=== PATIENT | male | born 1940 | race Caucasian/White ===

== ENCOUNTER 2017-07-07 06:31 | Emergency (ER) | payer MEDICARE, OTHER ==
[~2017-07-07] VITALS: Ht 177.8 cm; Wt 85.0 kg
[~2017-07-07 06:31] MED LIST: ACCUPRIL40 MG PO; ACTOS30 MG OR; ADVAIR DISK1 IN; ADVAIR DISK1 INH; ALBUTEROL0.083 % IN; ALBUTEROL0.5 % IN; AUGMENTIN500TAB PO; AVELOX400 MG PO; BYSTOLIC10 MG PO; CETIRIZ/PSE1 TAB PO; CIPROFLOXACN750 MG PO; CLARINEX5 MG PO; CLINDAMYCIN300 M1 PO; CLONIDINE0.1 MG PO; DEPO-MEDROL40 MG/ML IJ; EFFIENT; FLONASE0.05 %; FLOVENT HFA44 MCG IN; GLIPIZIDE5 MG PO; GLUCOPHAGE500 MG PO; HCTZ/TRIAMT1 TA1 PO; K-DUR/KLOR-CON10 MEQ PO; K-DUR/KLOR-CON20 MEQ PO; LEVITRA10 MG PO; LONITEN2.5 M1 PO; LOPID600 MG PO; LORTAB 1010 MG PO; MAXZIDE-2537.5 MG/TA PO; MEDDOSEPAK OR; MEDDOSEPAK PO; METFORMIN HCL500 M2 PO; METOPROL TAR50 MG PO; METOPROLOL TART50 MG PO; MINOXIDIL2.5 MG PO; NEBULIZE4 PO; PREDNISONE20 MG PO; PROAIR HFA IN; PROVENTIL INH17 GM IN; PROVENTIL0.083 % IN; PROVENTIL0.083 % NEB; SINGULAIR10 MG PO; TRICOR145 MG PO; VERAPAMIL240 MG PO; ZITHROMAX500 MG PO; ZPAK PO; ZYRTEC-D ALG PO
[2017-07-07 16:25] VITALS: BP 129/74
== END 2017-07-07 16:25 | disposition home or self-care (01) ==
LOC: ED 06:31
DX: Z59.1 Inadequate housing (principal); J44.9 Chronic obstructive pulmonary disease, unspecified; I10 Essential (primary) hypertension; E11.9 Type 2 diabetes mellitus without complications; Z99.81 Dependence on supplemental oxygen

== ENCOUNTER 2017-12-08 12:57 | Inpatient (IN) | payer MEDICARE, OTHER ==
[~2017-12-08] VITALS: Ht 182.9 cm; Wt 115.8 kg
--- NOTE | 2017-12-08 13:11 | NUR ---
PT ARRIVES TO ROOM 13 VIA EMS, SWELLING NOTED TO ABDOMEN AND GROIN.
[2017-12-08] MEDS ORDERED: LASIX 80 MG TAB80 M1 PO (13:33)
[2017-12-08] MEDS ORDERED: FINASTERIDE5 MG PO (13:34)
[2017-12-08 13:52] LABS: HEMATOCRIT 29.4 % (39.0-50.0); HEMOGLOBIN 8.1 g/dl (14.0-18.0); IMMATURE GRANULOCYTES 0.6 % (0.0-1.0); MEAN CELL VOLUME 69.8 fL CALC (80.0-100.0); MEAN CORPUSCULAR HGB 19.2 pG CALC (26.0-32.0); MEAN CORPUSCULAR HGB CONC 27.6 g/L CALC (32.0-36.0); NEUT# 7.56 thou/uL (1.82-7.42); RED BLOOD COUNT 4.21 mill/uL (4.70-6.10); RED CELL DISTRI WIDTH 21.3 % (11.5-15.5)
[2017-12-08 14:12] LABS: ALBUMIN 3.5 g/dL (3.2-5.0); ALKALINE PHOSPHATASE 143 u/l (38-126); ANION GAP 17 (6-22 (CALC)); BILIRUBIN, TOTAL 0.4 mg/dL (0.0-1.4); BUN 27 mg/dL (8-23); BUN/CREATININE RATIO 17 (12-20 (CALC)); CALCIUM 8.9 mg/dL (8.4-10.2); CARBON DIOXIDE 26 mmol/l (22-30); CHLORIDE 108 mmol/l (95-108); CREATININE 1.6 mg/dL (0.7-1.3); GFR 42 ML/MIN (>=60 (CALC)); GFR FOR AFR.AMER. 51 ML/MIN (>=60 (CALC)); GLUCOSE 74 mg/dL (82-115); POTASSIUM 3.5 mmol/l (3.5-5.1); SGOT/AST 31 u/l (19-48); SGPT/ALT 21 u/l (11-66); SODIUM 147 mmol/l (137-146); TOTAL PROTEIN 6.7 g/dL (6.3-8.2)
--- NOTE | 2017-12-08 14:15 | NUR ---
ASSISTED PT W/REPOSITIONING. PT PREFERS TO SIT UP TO ENHANCE RESPIRATIONS. SATS 97% 4L/M VIA NC.
[2017-12-08 14:25] LABS: MYOGLOBIN 122 ng/mL (0 - 121)
[2017-12-08 14:43] LABS: TSH, 3RD GENERATION 6.61 uIU/mL (0.47 - 4.68)
--- NOTE | 2017-12-08 15:29 | NUR ---
PO FLUIDS PROVIDED. PERFORMED RECTAL EXAM NEGATIVE RESULTS.
--- NOTE | 2017-12-08 15:44 | NUR ---
SBAR PRINTED TO FLOOR
--- NOTE | 2017-12-08 16:25 | NUR ---
REPORT PROVIDED TO HERMES WEISS. TELEMETRY IN PLACE ON PT. PT FEED SANDWICH FEEDS SELF. PO FLUIDS TAKEN WELL.
--- NOTE | 2017-12-08 16:31 | NUR ---
PT CAME FROM ER BY HERMES ESCOBAR VIA STRETCHER. VINICIO ZI IN ROOM TO ASSIST HIM TO THE SCALE THEN BACK IN BED.
--- NOTE | 2017-12-08 16:34 | NUR ---
PT TO MEDSURG VIA STRETCHER. IV ABT INFUSING. NO APPARENT DISTRESS, O2,TELE IN PLACE.
[2017-12-08 16:35] VITALS: BP 139/54
--- NOTE | 2017-12-08 17:15 | NUR ---
PT IS SITTING IN THE SIDE OF THE BED. ASSESSMENT DONE AND TELE IN PLACE. BREATHS SOUND ARE DIMINISHED. PT IS ON NASAL CANNULA 4L/MIN. #20 RAC APPEARS HEALTHLY. PT C/O OF HIP PAIN. PT LEGS ARE DRY AND 1+ EDEMA. WILL SEE ORDERS FOR PAIN MEDICATION. ORIENTED TO CALL LIGHT SYSTEM AND SAFETY PRECAUTIONS REINFORCED. PT VERBALIZED UNDERSTANDING. ORIENTED BY HERMES DE LA FUENTE.
[2017-12-08 18:33] LABS: URINE BILIRUBIN - DIPSTICK NEGATIVE (NEGATIVE); URINE BLOOD DIPSTICK NEGATIVE (NEGATIVE); URINE COLOR YELLOW; URINE GLUCOSE - DIPSTICK NEGATIVE (NEGATIVE); URINE KETONE NEGATIVE (NEGATIVE); URINE LEUK ESTERASE NEGATIVE (NEGATIVE); URINE NITRITE - DIPSTICK NEGATIVE (Negative); URINE PROTEIN - DIPSTICK 30 mg/dL (NEG-TRACE); URINE SPECIFIC GRAVITY >=1.030; URINE UROBILINOGEN - DIPSTICK 0.2 E.U./dL (0.2)
[2017-12-08 18:43] LABS: URINE CLARITY CLEAR; URINE RBC 0-2 RBC/hpf (0-5)
[2017-12-08 19:05] VITALS: BP 119/39
--- NOTE | 2017-12-08 19:20 | NUR ---
REPORT RECEIVED FROM HERMES GODFREY;PT OOB RESTING IN RECLINER RECEIVING A BREATHING TREATMENT;INTRODUCED SELF TO PT AND POC DISCUSSED;RESPIRATIONS EVEN AND UNLABORED ON 02 @ 3L VIA;FALL PRECAUTIONS IN PLACE AND PT ENCOURAGED TO CALL FOR ASSISTANCE IF NEEDED;CALL LIGHT IN REACH;WILL CONTINUE TO MONITOR
--- NOTE | 2017-12-08 20:00 | NUR ---
PT USES CALL LIGHT TO CALL FOR ASSISTANCE;UPON ENTERING THE ROOM PT COMPLAINS OF SOB;VS OBTAINED AND O2 SATS @ 95% ON 3L OF HUM OXYGEN,PURSED LIP BREATHING EDUCATED;ASSESSMENT COMPLETED;A&O X3;RESPIRATIONS EVEN AND UNLABORED,SHALLOW;DIMINISHED LUNG SOUNDS NOTED;ABDOMEM SOFT UPON PALPATION;+1 EDEMA NOTED TO BLE,PT ENCOURAGED TO ELEVATE LEGS THROUGHOUT THE NIGHT;SKIN INTACT,DRYNESS NOTED TO BLE;WEAK PEDAL PULSES;PT DENIES ANY PAIN,PAIN SCALE AND REPORTING EDUCATED;PO FLUIDS ENCOURAGED;SAFETY PRECAUTIONS REINFORCED;URINAL AT BEDSIDE;CALL LIGHT IN REACH;WILL CONTINUE TO MONITOR
--- NOTE | 2017-12-08 21:20 | NUR ---
PT COMPLAINS OF BACK/HIP PAIN RATING 8/10 ON THE PAIN SCALE AND REQUEST PAIN MEDICATION;PT REPORTS THAT THE PRN LORTAB DID NOT WORK FOR HIM;PRN ULTRAM 50MG PO ADMINISTERED AT THIS TIME;WILL MONITOR FOR EFFECTIVENESS
[2017-12-09] VITALS (13 sets, daily range): BP systolic 126–155; BP diastolic 60–79
--- NOTE | 2017-12-09 | NUR ---
PT OOB IN RECLINER WITH LEGS ELEVATED;RESPIRATIONS EVEN AND UNLABORED ON HUM 02 @ 3L VIA NC;PT REQUEST PRN BREATHING TREATMENT,RT TO BE NOTIFIED;PT DENIES ANY OTHER NEEDS AT THIS TIME;FALL PRECAUTIONS IN PLACE;WILL CONTINUE TO MONITOR
--- NOTE | 2017-12-09 05:10 | NUR ---
PT OOB RESTING IN RECLINER;VS AND WT OBTAINED;SKIN TEAR NOTED TO BE SCRATCHED OPENED TO LEFT ELBOW;NEW GOWN PROVIDED AND BANDAID APPLIED;TELE MONITOR IN PLACE;RESPIRATIONS EVEN AND UNLABORED,SHALLOW ON HUM O2 @ 3L;MANJINDER WILLY PROVIDED PER REQUEST;FALL PRECAUTIONS IN PLACE;WILL CONTINUE TO MONITOR
--- NOTE | 2017-12-09 05:20 | NUR ---
PT COMPLAINS OF BACK/HIP PAIN RATING 6/10 ON THE PAIN SCALE AND REQUEST PAIN MEDICATION;PT MEDICATED WITH PRN ULTRAM 50MG PO;WILL MONITOR FOR EFFECTIVENESS
--- NOTE | 2017-12-09 07:00 | NUR ---
BEDSIDE REPORT RECEIVED BY HERMES ASH. PT IS SITTING IN RECLINER RESTING. ORIENT BY HERMES DE LA FUENTE.
--- NOTE | 2017-12-09 08:00 | NUR ---
PT IS SITTING IN RECLINER. ASSESSMENT DONE AND VS CHARTED. RESP EVEN AND UNLABORED, SHALLOW, DIMINISHED LUNGS SOUNDS. # 20 RAC THAT APPEARS HELATHLY. PT STATED THAT HE DOES NOT HAVE PAIN AT THIS TIME. FEET BILATERAL EDEMA 1+. ORIENTED TO CALL LIGHT SYSTEM, SAFETY PRECAUTIONS REINFORCED AND POC DISCUSSED. PT VERBALIZED UNDERSTANDING.
--- NOTE | 2017-12-09 08:49 | NUR ---
PT WENT VIA WHEELCHAIR WITH O2 AT 3L/MIN FOR HIS X-RAY.
--- NOTE | 2017-12-09 12:06 | NUR ---
PT IS SITTING IN RECLINER AND NO S/S OF DISTRESS NOTED. BLOOD TRANSFUSION BEGIN AND EXLPLAIN SIGN OF REACTION. PT VERBALIZED UNDERSTANDING.
--- NOTE | 2017-12-09 12:50 | NUR ---
PT IS SITTING IN RECLINER WITH NO S/S OF DISTRESS NOTED. PT IS VISITING WITH FAMILY.
--- NOTE | 2017-12-09 14:25 | NUR ---
PT TO MRI VIA WHEELCHAIR WITH O2 AT 3L/MIN.
--- NOTE | 2017-12-09 15:38 | NUR ---
PT IS SITTING IN RECLINER EATING HIS SANDWICH. SECOND UNIT OF BLOOD TRANSFUSION BEGIN. SIGN OF REACTION EXPLAIN AND PT VERBALIZED UNDERSTANDING.
--- NOTE | 2017-12-09 17:30 | NUR ---
MEDICATED PT FOR PAIN SEE EMAR. PT IS SITTING IN RECLINER GETTING READY TO EAT HIS DINNER. NO S/S OF DISTRESS NOTED. PT DENIES ANY OTHER NEEDS AT THIS TIME.
--- NOTE | 2017-12-09 19:10 | NUR ---
REPORT RECEIVED FROM EPIFANIORN;PT OOB RESTING IN RECLINER;INTRODUCED SELF TO PT AND POC DISCUSSED;RESPIRATIONS EVEN AND UNLABORED ON HUM O2 @ 3L VIA NC;PT ENCOURAGED TO CALL FOR ASSISTANCE IF NEEDED;CALL LIGHT IN REACH;WILL CONTINUE TO MONITOR
--- NOTE | 2017-12-09 19:50 | NUR ---
PT RESTING IN RECLINER WATCHING TV;ASSESSMENT COMPLETED;RESPIRATIONS EVEN AND UNLABORED,SHALLOW ON HUM 02 @ 3L VIA NC,COARSE LUNG SOUNDS NOTED;ABDOMEN SOFT;+1 EDEMA TO BLE,PT ENCOURAGED TO ELEVATE LEGS;GENERALIZED DRYNESS NOTED TO BLE;TELE MONITOR IN PLACE;#20G TO RAC FLUSHED AND PATENT,SCANT AMOUNT OF BLOOD TINGED DRAINAGE NOTED TO DRESSING;40 MG IV LASIX ADMINISTED AT THIS TIME;URINAL AT BEDSIDE;SKIN TEAR NOTED TO LEFT FOREARM,BANDAID IN PLACE;PT DENIES ANY PAIN TO BACK/HIP,PAIN SCALE AND REPORTING EDUCATED;SAFETY PRECAUTIONS REINFORCED AND PO FLUIDS ENCOURAGED;CALL LIGHT IN REACH;WILL CONTINUE TO MONITOR
[2017-12-10] VITALS (7 sets, daily range): BP systolic 135–161; BP diastolic 68–83
--- NOTE | 2017-12-10 00:25 | NUR ---
PT OOB SLEEPING IN RECLINER;RESPIRATIONS EVEN AND UNLABORED ON HUM O2 @ 3L;TELE MONITOR IN PLACE;NO S/S OF DISTRESS NOTED;CALL LIGHT IN REACH;WILL CONTINUE TO MONITOR
--- NOTE | 2017-12-10 02:30 | NUR ---
PT COMPLAINS OF BACK/HIP PAIN RATING 7/10 ON THE PAIN SCALE AND REQUEST PAIN MEDICATION;PT MEDICATED WITH PRN ULTRAM 50MG PO;#20G TO RAC REMOVED PER PT REQUEST WITH CATHETER INTACT;NEW #22G STARTED TO RIGHT FOREARM;WILL CONTINUE TO MONITOR
--- NOTE | 2017-12-10 04:55 | NUR ---
PT OOB RESTING IN RECLINER WITH LAB AT BEDSIDE;RESPIRATIONS EVEN AND UNLABORED ON O2 @ 3L VIA NC;TELE MONITOR IN PLACE;PT DENIES ANY PAIN OR NEEDS AT THIS TIME;COFFEE PROVIDED PER REQUEST;FALL PRECAUTIONS IN PLACE WITH CALL LIGHT IN REACH;WILL CONTINUE TO MONITOR
[2017-12-10 05:43] LABS: HEMATOCRIT 38.2 % (39.0-50.0); HEMOGLOBIN 10.5 g/dl (14.0-18.0); IMMATURE GRANULOCYTES 3.5 % (0.0-1.0); MEAN CELL VOLUME 73.6 fL CALC (80.0-100.0); MEAN CORPUSCULAR HGB 20.2 pG CALC (26.0-32.0); MEAN CORPUSCULAR HGB CONC 27.5 g/L CALC (32.0-36.0); NEUT# 6.74 thou/uL (1.82-7.42); RED BLOOD COUNT 5.19 mill/uL (4.70-6.10); RED CELL DISTRI WIDTH 21.5 % (11.5-15.5)
[2017-12-10 05:56] LABS: BILIRUBIN, TOTAL 0.4 mg/dL (0.0-1.4); CREATININE 1.6 mg/dL (0.7-1.3); POTASSIUM 4.7 mmol/l (3.5-5.1); TOTAL PROTEIN 7.2 g/dL (6.3-8.2)
--- NOTE | 2017-12-10 07:06 | NUR ---
INTRODUCED SELF TO PT AND COMPLETED MY ASSESSMENT AT THIS TIME. PTS VITALS ARE WNL. RESPIRATIONS ARE EVEN AND UNLABORED W/ COARSENESS BILATERALLY WITH DIMINISHED BASES AND EXPIRATORY WHEEZES. THE PT IS ON 3L O2 NC AT 96% SITTING UP IN THE CHAIR PER HIS PREFERENCE. PT HAS BILATERAL LE +1 PITTING EDEMA W/ SCALY DRY SKIN AND WEAK BUT PRESENT PEDAL PULSES. PT COMPLAINS OF NO PAIN AT THIS TIME W/ NO OTHER NEEDS. CALL LIGHT AND BEDSIDE TABLE WITHIN REACH W/ INSTRUCTIONS TO CALL FOR ASSISTANCE. WILL CONTINUE TO MONITOR.
--- NOTE | 2017-12-10 07:19 | NUR ---
REPORT RECEIVED FROM LUIS ALBERTO GEORGE. PT SITTING IN CHAIR AT BEDSIDE. DENIES PAIN. REPORTING OF COCNERNS ENCOURAGED. PLAN OF CARE DISCUSSED. CALL LIGHT REVIEWED AND IN REACH. PT STATES UNDERSTANDING.
--- NOTE | 2017-12-10 11:10 | NUR ---
TRANSPORTED PT TO MRI VIA WC W/ 3L NC ON PORTABLE O2. WHEN WE GOT TO THE MRI TRAILER THE PT STATED THAT HE WOULD TRY THIS ONE MORE TIME BUT AFTER THIS HE DIDN'T WANT TO DO IT AGAIN IF HE CAN'T TOLERATE IT THIS TIME. ASSISTED AL THE GLASS WASHER AND CARRIER TO GET THE PT ONTO THE MRI TABLE AND RE-ENFORCED TO THE PT THE IMPORTANCE OF THIS EXAM. WHEN PT LAY SUPINE PHYSICALLY UNABLE TO TOLERATE EXAM. PT BROUGHT BACK TO ROOM. NOTIFIED BY JEFFERY MIRZA. WILL CONTINUE TO MONITOR.
--- NOTE | 2017-12-10 12:39 | NUR ---
DR. SIU NOTIFIED OF PT UNABLE TO COMPLETE MRI R/T SOB WHILE SUPINE.
--- NOTE | 2017-12-10 15:27 | NUR ---
PT SITTING IN CHAIR. DROWSY R/T PREVIOUS DOSE OF ATIVAN PRN MRI STUDY. BED ALARM ATTACHED TO GOWN FOR SAFETY. PT INCONTINENT OF URINE X 2 IN CHAIR.
--- NOTE | 2017-12-10 19:10 | NUR ---
REPORT RECEIVED FROM TYRONERN;PT SITTING UPRIGHT IN BED,DROWSY;POC DISCUSSED AND PT VERBALIZES UNDERSTANDING;FALL PRECAUTIONS IN PLACE;DENIES ANY PAIN OR SOB,HUM OXYGEN ON RUNNING @ 3L;CALL LIGHT REVIEWED AND IN REACH;PT STATES UNDERSTANDING
--- NOTE | 2017-12-10 21:50 | NUR ---
PT RESTING AT BEDSIDE;A&O X3;ASSESSMENT COMPLETED;;RESPIRATIONS EVEN AND UNLABORED ON O2 @ 3L VIA NC,DIMINISHED LUNG SOUNDS NOTED;ABDOMEN DISTENDED;EDEMA NOTED TO BLL AND SCROTUM;ENCOURAGED PT TO ELEVATE LEGS AND SCROTUM ELEVATED ON A BATH BLANKET;DISCUSSED INSERTING A SOLIS CATHETER TO PT FOR ACCURATE I&O'S PER ORDER,PT VERBALIZES UNDERSTANDING;WEAK PEDAL PULSES NOTED;SCALING TO BLL AND SKIN TEAR TO LEFT FOREARM;#22G TO LEFT FOREARM FLUSHED AND PATENT,SITE APPEARS HEALTHY AND FREE FROM EDEMA;PO FLUIDS ENCOURAGED;DENIES PAIN TO HIP/BACK AT THIS TIME,PAIN REPORTING ENCOURAGED;FALL PRECAUTIONS IN PLACE;WILL CONTINUE TO MONITOR
--- NOTE | 2017-12-10 22:00 | NUR ---
MULTIPLE ATTEMPTS MADE TO INSERT A 16F SOLIS CATHETER,UNABLE TO OBTAIN AT THIS TIME DUE TO INCREASED EDEMA TO SCROTUM;WILL ATTEMPT AT A LATER TIME;PT TOELRATED WELL;CALL LIGHT IN REACH;WILL CONTINUE TO MONITOR
--- NOTE | 2017-12-10 23:30 | NUR ---
RT AT BEDSIDE TO ADMINISTER BREATHING TREATMENT PER PT REQUEST
--- NOTE | 2017-12-10 23:30 | NUR ---
PT REQUESTS TO BE RE-POSITIONED TO RECLINER;ENCOURAGED PT TO REMAIN IN BED TO ELEVATE EXTREMITIES,PT REFUSES;PT POSITIONED INTO RECLINER;LEGS AND SCROTUM ELEVATED IN ATTEMPTS TO DECREASE EDEMA;TELE MONITOR IN PLACE;RESPIRATIONS EVEN AND UNLABORED ON 3L VIA NC;DENIES ANY PAIN;CALL LIGHT IN REACH;WILL CONTINUE TO MONITOR
--- NOTE | 2017-12-11 02:30 | NUR ---
PT REPORTS THAT HE VOIDED ALL OVER RECLINER;PAOLA CARE PROVIDED;PT RE-POSITIONED INTO BED;16F SOLIS INSERTED WITH EASE,PT TOLERATED WELL;200CC OF CLOUDY/YELLOW URINE OBTAINED;PT SITTING UPRIGHT IN BED;RESPIRATIONS EVEN AND UNLABORED;DENIES ANY PAIN;WILL CONTINUE TO MONITOR
[2017-12-11 03:20] VITALS: BP 157/74
--- NOTE | 2017-12-11 04:20 | NUR ---
PT RESTING ON BEDSIDE;SOLIS CATHETER PATENT,HANGING TO GRAVITY,DRAINING CLOUDY/YELLOW URINE;PT DENIES ANY PAIN;REPSIRATIONS EVEN AND UNLABORED,SHALLOW ON OXYGEN @ 3L VIA NC;PT REQUEST BREATHING TREATMENT AT THIS TIME,RT TO BE NOTIFIED OF REQUEST;TELE MONITOR IN PLACE;PT VOICES NO OTHER NEEDS;FALL PRECAUTIONS IN PLACE;CALL LIGHT WITHIN REACH;WILL CONTINUE TO MONITOR
--- NOTE | 2017-12-11 05:00 | NUR ---
RT AT BEDSIDE TO ADMINISTER BREATHING TREATMENT
[2017-12-11 06:09] LABS: ALBUMIN 3.8 g/dL (3.2-5.0); BILIRUBIN, TOTAL 0.3 mg/dL (0.0-1.4); CALCIUM 8.9 mg/dL (8.4-10.2); CREATININE 1.4 mg/dL (0.7-1.3); HEMATOCRIT 33.4 % (39.0-50.0); HEMOGLOBIN 9.2 g/dl (14.0-18.0); IMMATURE GRANULOCYTES 1.8 % (0.0-1.0); MEAN CELL VOLUME 73.2 fL CALC (80.0-100.0); MEAN CORPUSCULAR HGB 20.2 pG CALC (26.0-32.0); MEAN CORPUSCULAR HGB CONC 27.5 g/L CALC (32.0-36.0); NEUT# 9.54 thou/uL (1.82-7.42); POTASSIUM 4.4 mmol/l (3.5-5.1); RED BLOOD COUNT 4.56 mill/uL (4.70-6.10); RED CELL DISTRI WIDTH 21.7 % (11.5-15.5); TOTAL PROTEIN 6.7 g/dL (6.3-8.2)
--- NOTE | 2017-12-11 07:19 | NUR ---
REPORT RECEIVED FROM LUIS ALBERTO GEORGE. PT SITTING ON SIDE OF BED. DENIES PAIN, REPORTING OF CONCERNS ENCOURAGED. PLAN OF CARE DISCUSSED. FALL PRECAUTIONS REINFORCED. CALL LIGHT REVIEWED AND IN REACH. PT STATES UNDERSTANDING.
[2017-12-11 07:35] VITALS: BP 162/80
--- NOTE | 2017-12-11 09:00 | NUR ---
DR. SIU IN TO SEE PT. PLAN OF CARE UPDATED. NPO FOR US REVIEWED.
[2017-12-11 11:13] VITALS: BP 146/65
--- NOTE | 2017-12-11 12:06 | NUR ---
PT SITTING IN CHAIR AT BEDSIDE. INQUIRING OF ESTIMATE TIME FOR US TESTING. NOTIFIED BY [facility] IT WILL BE ABOUT 1300. PT NOTIFIED AND STATES UNDERSTANDING.
--- NOTE | 2017-12-11 13:30 | NUR ---
PT LEFT FLOOR VIA WHEELCHAIR ACCOMPANIED BY VOLUNTEER TO US DEPARTMENT.
--- NOTE | 2017-12-11 14:10 | NUR ---
PT RETURNED TO FLOOR VIA WHEELCHAIR. REPORTS TOLERATING US WITHOUT INCIDENT. PT NOW IN CHAIR AT BEDSIDE. SPOUSE AND SON PRESENT.
[2017-12-11 15:56] VITALS: BP 161/72
--- NOTE | 2017-12-11 18:33 | NUR ---
PT SITTING IN CHAIR AT BEDSIDE. EATING DINNER, DENIES COMPLAINTS.
[2017-12-11 19:00] VITALS: BP 151/72
--- NOTE | 2017-12-11 19:30 | NUR ---
BEDSIDE REPORT RECEIVED FROM HERMES HANSEN. PT SITTING UP IN RECLINER. ALERT AND ORIENTED. C/O MODERATE HIP AND BACK PAIN. RESPIRATIONS EVEN AND UNLABORED ON OXYGEN. SOLIS IN PLACE. PLAN OF CARE DISCUSSED. PT ENCOURAGED TO VERBALZIE CONCERNS. STATES UNDERSTANDING AND REQUESTS A TRAMADOL FOR PAIN. SAFETY MEASURES IN PLACE. CALL LIGHT WITHIN REACH.
--- NOTE | 2017-12-11 22:45 | NUR ---
TRAMADOL EFFECTIVE FOR PAIN. SOLIS DRAINING CLEAR, YELLOW URINE IN ADEQUATE AMOUNTS. VS ARE STABLE. HAD NO FURTHER REQUESTS AT THIS TIME. ENCOURAGED TO NOTIFY NURSE OF ANY NEEDS. SAFETY MEASURES IN PLACE. CALL LIGHT WITHIN REACH.
[2017-12-12] VITALS (8 sets, daily range): BP systolic 129–175; BP diastolic 68–90
--- NOTE | 2017-12-12 01:02 | NUR ---
PT REQUESTED BREATHING TREATMENT FOR SOB; GIVEN WITH GOOD EFFECT. RESPIRATIONS EVEN AND UNLABORED. OXYGEN SATURATIONS REMAIN ABOVE 90%.
--- NOTE | 2017-12-12 05:17 | NUR ---
PT REMAINS SITTING UP IN RECLINER. C/O MODERATE PAIN TO HIPS AND BACK; MEDICATIONED 3 TIMES DURING THE SHIFT WITH TRAMADOL AND TYLENOL WITH SOMEWHAT GOOD EFFECT. RESPIRATIONS SEEM LABORED AT TIMES. PT REQUESTED HIS INHALER FOR SOB. OXYGEN SATURATIONS REMAINS ABOVE 90% ON 3L OF OXYGEN. INDWELLING SOLIS CATHETER CONTINUES TO DRAIN CLEAR YELLOW URINE IN ADEQUATE AMOUNTS. SPUTUM SAMPLE COLLECTED; A SMALL AMOUNT CLEAR AND THICK. SAFETY MEASURES IN PLACE. CALL LIGHT WITHIN REACH.
--- NOTE | 2017-12-12 07:19 | NUR ---
REPORT RECEIVED FROM HERMES PEPPER. PT SITTING IN CHAIR AT BEDSIDE. DENIES PAIN. PLAN OF CARE DISCUSSED. FALL PRECAUTIONS REINFORCED. CALL LIGHT REVIEWED AND IN REACH. PT STATES UNDERSTANDING.
--- NOTE | 2017-12-12 07:30 | NUR ---
Report rec'd from Edwina Bloom RN. Pt assessment completed. Pt awake, sitting up in recliner. No complaints of pain at this time, assisted with repositioning in chair for comfort. No SOB exhibited, resp even/unlabored RR 18, O2 sat 92% with NC 3L. Lung sounds diminished bilaterally. HR sinus tach @ 103 BPM apically. Abdomen distended & firm, bowel sounds active, pt confirms flatus <24 hrs, >72 hrs since last BM. Edema noted in bilateral forerarms w/ dryness, bilateral thighs, lower abdomen and scrotum. Dryness and scaling bilaterally in lower legs below the knee. Polo catheter patent, hanging to gravity, draining clear/yellow urine. All safety measures in place, call light and personal items within reach, reminded pt to call for assist.
--- NOTE | 2017-12-12 08:30 | NUR ---
Polo catheter D/C'd per Dr. López orders and removed with supervision by Lydia Sultana RN. Withdrew 10cc of clear saline from balloon, catheter removed without resistance, tip intact, pt tolerated well. Measured 300cc of clear/yellow urine in urinary drainage bag. Pt provided w/ urinal and will continue to monitor for first void. Pt sitting up in recliner, all safety measures in place, call light and personal items within reach.
--- NOTE | 2017-12-12 08:49 | NUR ---
SOLIS CATHETER REMOVED BY STUDENT NURSE WITH WRITERS SUPERVISION. DR. SIU AT BEDSIDE DISCUSSING PLAN OF CARE. PT STATES UNDERSTANDING.
[2017-12-12 09:42] LABS: HEMOGLOBIN 9.2 g/dl (14.0-18.0); IMMATURE GRANULOCYTES 0.8 % (0.0-1.0); MEAN CELL VOLUME 72.4 fL CALC (80.0-100.0); MEAN CORPUSCULAR HGB 20.2 pG CALC (26.0-32.0); MEAN CORPUSCULAR HGB CONC 27.9 g/L CALC (32.0-36.0); RED BLOOD COUNT 4.56 mill/uL (4.70-6.10); RED CELL DISTRI WIDTH 21.9 % (11.5-15.5)
--- NOTE | 2017-12-12 10:00 | NUR ---
Pt. voided 225cc clear/yellow urine post palmer catheter removal, denies pain/discomfort upon urination. Pt sitting up in recliner, all safety measures in place, call light and personal items within reach.
--- NOTE | 2017-12-12 12:21 | NUR ---
PT SITTING IN CHAIR AT BEDSIDE. PLAN OF CARE UPDATED PER DR. SIU R/T NEW XRAY RESULTS. PT STATES UNDERSTANDING. STATES "WELL ILL BE WAITING TO SEE DR. SIU THIS AFTERNOON."
--- NOTE | 2017-12-12 13:46 | NUR ---
AT 1300 PT WAS FOUND ON THE FLOOR BY DYER ASSISTANT. ATTEMPTED TO GET PT UP WITH 3 PEOPLE, HAD TO USE THE LOUISE LIFT TO ASSIST PT ON STANDING UP, IV SITE IS IN WITH NO REDNESS OR EDEMA. CALLED DR. DURBIN OFFICE TO INFORM HIM. LEFT WORD WITH DEISY SAHU. PT SUSTAINED SKIN TEARS ON RFA , R HAND, AND R KNEE, COVERED WITH OPSITE. PT STATED" I WAS GOING TO THE BATHROOM AND I CALLED BUT NO ONE CAME," STAFF WAS GETTING REPORT AND NO CALL WAS PLACED. CONTINUE TO OSBERVE AND MONITOR,
--- NOTE | 2017-12-12 16:30 | NUR ---
PT IS SITTING IN THE CHAIR., NO DISTRESS NOTED. IV SITE IS FREE FROM REDNESS OR EDEMA. CONTINUE TO OSBERVE AND MONOITOR.
--- NOTE | 2017-12-12 19:30 | NUR ---
BEDSIDE REPORT RECEIVED FROM LUIS ALBERTO FLOYD. PT SITTING UP IN RECLINER ALERT AND ORIENTED. C/O BACK AND HIP PAIN; TRAMADOL GIVEN. RESPIRATIONS EVEN AND UNABORED ON OXYGEN. DRESSINGS TO RUE HAVE SEROSANGUINOUS DRAINAGE TO 75% OF DRESSING. PLAN OF CARE DISCUSSED. PT ENCOURAGED TO VERBALIZE CONCERNS. STATES UNDERSTANDING. SAFETY MEASURES IN PLACE INCLUDING BED ALARM. CALL LIGHT WITHIN REACH.
--- NOTE | 2017-12-12 22:18 | NUR ---
DRESSINGS CHANGED TO RIGHT ARM, RIGHT KNEE AND LEFT ELBOW. SKIN TEAR TO LEFT FOREARM APPROXIMATED AND STERI STIPS APPLIED WITH TELFA AND KERLEX. PICTURES TAKEN AND IN CHART. PT ALSO REQUESTED BREATHING TREATMENT FOR SHORTNESS OF BREATH. AT TIME OF COMPLAINT PT'S RESPIRATIONS EVEN AND UNLABORED AND OXYGEN SATURATION 94%. RESPIRATORY AT BEDSIDE NOW.
--- NOTE | 2017-12-13 00:17 | NUR ---
PT ASLEEP IN RECLINER AT THIS TIME WITH NO SIGNS OF DISTRESS NOTED. RESPIRATIONS EVEN AND UNLABORED ON OXGYEN. SAFETY MEASURES IN PLACE. CALL LIGHT WITHIN REACH.
--- NOTE | 2017-12-13 04:07 | NUR ---
PT SLEPT THROUGHOUT THE NIGHT. BREATHING TREATMENT AT HS WAS EFFECTIVE FOR C/O SOB. DENIES PAIN AT THIS TIME. RESPIRATIONS EVEN AND UNLABORED ON ROOM AIR. USING URINAL AT BEDSIDE TO VOID. SAFETY MEASURES IN PLACE INCLUDING BED ALARM. CALL LIGHT WITHIN REACH.
[2017-12-13 04:54] VITALS: BP 168/81
[2017-12-13 06:38] LABS: HEMATOCRIT 34.7 % (39.0-50.0); HEMOGLOBIN 9.6 g/dl (14.0-18.0); IMMATURE GRANULOCYTES 0.8 % (0.0-1.0); MEAN CELL VOLUME 73.4 fL CALC (80.0-100.0); MEAN CORPUSCULAR HGB 20.3 pG CALC (26.0-32.0); MEAN CORPUSCULAR HGB CONC 27.7 g/L CALC (32.0-36.0); NEUT# 10.79 thou/uL (1.82-7.42); RED BLOOD COUNT 4.73 mill/uL (4.70-6.10); RED CELL DISTRI WIDTH 22.4 % (11.5-15.5)
[2017-12-13 06:47] LABS: ALBUMIN 3.8 g/dL (3.2-5.0); ALKALINE PHOSPHATASE 140 u/l (38-126); ANION GAP 15 (6-22 (CALC)); BILIRUBIN, TOTAL 0.6 mg/dL (0.0-1.4); BUN 36 mg/dL (8-23); BUN/CREATININE RATIO 35 (12-20 (CALC)); CALCIUM 8.8 mg/dL (8.4-10.2); CARBON DIOXIDE 33 mmol/l (22-30); CHLORIDE 100 mmol/l (95-108); GFR > 60 ML/MIN (>=60 (CALC)); GFR FOR AFR.AMER. > 60 ML/MIN (>=60 (CALC)); GLUCOSE 144 mg/dL (82-115); POTASSIUM 3.6 mmol/l (3.5-5.1); SGOT/AST 49 u/l (19-48); SGPT/ALT 34 u/l (11-66); SODIUM 145 mmol/l (137-146); TOTAL PROTEIN 6.7 g/dL (6.3-8.2)
[2017-12-13 08:25] VITALS: BP 163/78
--- NOTE | 2017-12-13 08:25 | NUR ---
ASSESSMETN IS COMPLETED: PT IS SITTING IN THE CHAIR, NO DISTRESS NOTED. IV SITE IS FREE FROM REDNESS OR EDEMA. TELE MONITOR IN PLACE. BREATH SOUNDS ARE CLEAR,BILATERALLY, HR IS REG,PULSES ARE STRONG
[2017-12-13 12:15] VITALS: BP 158/78
--- NOTE | 2017-12-13 12:20 | NUR ---
PT IS VISITING WITH FAMILY NO DISTRESS NOTEDD. IV SITE IS FREE FROM REDNESS OR EDEMA. CONTINUE TO OSBERVE AND MONIOTR.
[2017-12-13 16:30] VITALS: BP 138/66
--- NOTE | 2017-12-13 16:30 | NUR ---
PT IS SITTING IN THE CHAIR, NO DISTRESS NOTED. IV SITE IS FREE FROM REDNESS OR EDEMA.
[2017-12-13 19:00] VITALS: BP 183/73
--- NOTE | 2017-12-13 19:42 | NUR ---
BEDSIDE REPORT RECEIVED FROM LUIS ALBERTO FLOYD. PT UP TO BSC AT THIS TIME FOR AN EXTRA LARGE BM. SPECIMEN COLLECTED. PT C/O MILD BACK AND HIP PAIN AND REQUESTS TYLENOL. RESPIRATIONS EVEN AND UNLABORED ON OXYGEN. IS AT BEDSIDE AND PT DEMONSTATED UNDERSTANDING OF USE. PLAN OF CARE REVIEWED. PT ENCOURAGED TO VERBALIZE CONCERNS. STATES UNDERSTANDING. SAFETY MEASURES IN PLACE. CALL LIGHT WITHIN REACH.
--- NOTE | 2017-12-14 00:35 | NUR ---
PT REMAINS UP IN RECLINER; ASLEEP AT THIS TIME. NO SIGNS OF DISTRESS. RESPIRATIONS EVEN AND UNLABORED ON OXYGEN. DRESSINGS TO RFA AND RIGHT KNEE REPLACED AND CDI. LESS DRAINAGE NOTED FROM SKIN TEAR TO RFA. PT USING URINAL AT BEDSIDE TO VOID. IV SITE APPEARS HEALTHY AND FLUSHES. USES CALL LIGHT PRN FOR ASSISTNACE. SAFETY MEASURES IN PLACE. CALL LIGHT WITHIN REACH.
[2017-12-14 00:49] VITALS: BP 163/76
--- NOTE | 2017-12-14 04:13 | NUR ---
PT AWAKENED A FEW TIMES THROUGHOUT THE NIGHT AND MEDICATED FOR HIP AND BACK PAIN WITH GOOD EFFECT. RESPIRATIONS EVEN AND UNLABORED ON ROOM AIR. NO OTHER REQUESTS. VOIDING FREQUENTLY IN URINAL. HAS SOME QUESTIONS ABOUT SCHEDULED CHEST XRAY FOR THIS MORNING; EAGER TO GO HOME. QUESTIONS ANSWERED TO SATISFACTION. SAFETY MEASURES IN PLACE. NO ATTEMPTS TO GET UP UNASSISTED. CALL LIGHT WITHIN REACH.
[2017-12-14 05:23] VITALS: BP 162/74
[2017-12-14 05:32] LABS: HEMATOCRIT 31.6 % (39.0-50.0); IMMATURE GRANULOCYTES 0.8 % (0.0-1.0); MEAN CORPUSCULAR HGB 20.8 pG CALC (26.0-32.0); MEAN CORPUSCULAR HGB CONC 28.5 g/L CALC (32.0-36.0); NEUT# 10.08 thou/uL (1.82-7.42); RED BLOOD COUNT 4.33 mill/uL (4.70-6.10); RED CELL DISTRI WIDTH 22.6 % (11.5-15.5)
--- NOTE | 2017-12-14 06:01 | NUR ---
PT'S OXYGEN SATURATION DECREASED THIS AM TO 86% ON 3L OF OXYGEN VIA NC. RESPIRATORY CHANGED TUBING TO GREEN HIGH FLOW NASAL CANNULA AND OXYGEN SATURATION IS CURRENTLY 91% STILL ON 3L. EDUCATED ON BREATHING TECHNIQUES AND ENCOURAGED TO USE INCENTIVE SPIROMETER. WILL CONTINUE TO MONITOR RESPIRATORY STATUS. PT DOES C/O SLIGHT SOB AT TIMES DURING REST. SCHEDULED FOR F/U CHEST XRAY THIS AM. ALSO MEDICATED AT THIS TIME FOR 6/10 HIP AND KNEE PAIN.
[2017-12-14 06:04] LABS: ANION GAP 14 (6-22 (CALC)); BUN 27 mg/dL (8-23); BUN/CREATININE RATIO 28 (12-20 (CALC)); CALCIUM 8.5 mg/dL (8.4-10.2); CARBON DIOXIDE 35 mmol/l (22-30); CHLORIDE 99 mmol/l (95-108); GFR > 60 ML/MIN (>=60 (CALC)); GFR FOR AFR.AMER. > 60 ML/MIN (>=60 (CALC)); GLUCOSE 140 mg/dL (82-115); POTASSIUM 2.9 mmol/l (3.5-5.1); SODIUM 144 mmol/l (137-146)
--- NOTE | 2017-12-14 06:43 | NUR ---
PT BACK TO UNIT FROM XRAY WITH NURSE IN STABLE CONDITION. TRANSPORTED VIA WHEELCHAIR ON OXYGEN. WET COUGH NOTED. REPOSITIONED BACK INTO RECLINER. ENCOURAGED TO ELEVATE EXTREMITIES HOWEVER PT DECLINES STATING THAT HE CAN BREATH BETTER WHEN HE IS SITTING UPRIGHT. CALL LIGHT WITHIN REACH.
[2017-12-14 07:47] VITALS: BP 140/65
--- NOTE | 2017-12-14 07:47 | NUR ---
ASSESSMENT IS COMPLETED: PT HAS BEEN IN THE CHAIR. NO DISTRESS NOTED. C/O O2 BEING TOO STRONG. IV SITE IS FREE FROM REDNESS OR EDEMA. CONTINUE TO OBSERVE AND MONITOR.
--- NOTE | 2017-12-14 09:00 | NUR ---
PT STARTED HAVING SOME ST CHANGES EKG COMPLETED: IN AT 1000 WAS SHOWN THE EKG. NOTHING HAS CHANGED.
[2017-12-14 10:02] VITALS: BP 162/74
[2017-12-14] MEDS ORDERED: LEVAQUIN750 MG PO (10:33)
[2017-12-14] MEDS ORDERED: LORTAB 7.57.5 MG PO (10:33)
--- NOTE | 2017-12-14 12:15 | NUR ---
PT IS RELAXING IN THE CHAIR. SPOKE WITH FAMILY AND THEY WERE INQUIRING IF PT COULD WALK. IV SITE DISCONTINUED CATHETER INTACT. NO REDNESS OR EDEMA. CONTINUE TO OBSERVE AND MONITOR.
--- NOTE | 2017-12-14 14:23 | NUR ---
WAITING ON FAMILY TO COME AND TRANSPORT PT. HOME. IV AND TELE MONITOR ARE OFF THE PT. CONTINUE TO OBSERVE AND MONITOR.
--- NOTE | 2017-12-14 16:30 | NUR ---
PT IS GETTING ASSISTED TO BE DISCHARGED FAMILY FRIEND IN TO ASSIST THEM THIS WEEK. IV SITE WAS DISCONTINUED, CATHETER INTACT., TELE MONITOR TAKEN OFF. DISCHARGE INSTRUCTIONS GIVEN AND VERBALIZED UNDERSTANDING. Discharge instructions given. Patient verbalizes understanding of same. Discharged in stable condition via Wheelchair to Home with family. All belongings sent with pt.
== END 2017-12-14 16:15 | disposition home or self-care (01) | DRG 190 ==
LOC: ED 12:57 → ED-I 14:59 → ED 15:39 → MS2 15:40
PROVIDERS: Emergency Medicine; Nurse Practitioner Family; ADMIT Internal Medicine; ATTEND Internal Medicine Geriatric Medicine
PROC: 30233N1 Transfusion of Nonautologous Red Blood Cells into Peripheral Vein, Percutaneous Approach (ICD-10-PCS; 2017-12-09)
PROC: 30233N1 Transfusion of Nonautologous Red Blood Cells into Peripheral Vein, Percutaneous Approach (ICD-10-PCS; 2017-12-09)
PROC: 0T9B70Z Drainage of Bladder with Drainage Device, Via Natural or Artificial Opening (ICD-10-PCS; principal; 2017-12-11)
DX: J44.0 Chronic obstructive pulmonary disease with (acute) lower respiratory infection (principal); J18.9 Pneumonia, unspecified organism; L03.115 Cellulitis of right lower limb; E11.51 Type 2 diabetes mellitus with diabetic peripheral angiopathy without gangrene; L03.116 Cellulitis of left lower limb; D64.9 Anemia, unspecified; E27.9 Disorder of adrenal gland, unspecified; J44.1 Chronic obstructive pulmonary disease with (acute) exacerbation; E78.5 Hyperlipidemia, unspecified; I10 Essential (primary) hypertension; I25.10 Atherosclerotic heart disease of native coronary artery without angina pectoris; R09.02 Hypoxemia; K21.9 Gastro-esophageal reflux disease without esophagitis; M17.10 Unilateral primary osteoarthritis, unspecified knee; K86.9 Disease of pancreas, unspecified; Z99.81 Dependence on supplemental oxygen
CPT/HCPCS: G0378; J1756; J2060; P9016

== ENCOUNTER 2020-09-07 13:04 | Inpatient (IN) | payer MEDICARE, OTHER ==
[~2020-09-07] VITALS: Ht 182.9 cm; Wt 82.6 kg
[~2020-09-07 13:04] MED LIST changes: +FINASTERIDE5 MG PO; +LASIX 80 MG TAB80 M1 PO; +LEVAQUIN750 MG PO; +LORTAB 7.57.5 MG PO
--- NOTE | 2020-09-07 13:04 | NUR ---
PT TO ROOM 10 VIA EMS. [place]. C/O SOB AND LOSS TASTE X 4 DAYS.
[2020-09-07 14:20] LABS: HEMOGLOBIN 13.3 g/dl (14.0-18.0); IMMATURE GRANULOCYTES 0.5 % (0.0-5.0); MEAN CORPUSCULAR HGB 32.1 pG CALC (26.0-32.0); MEAN CORPUSCULAR HGB CONC 33.8 g/dL CAL (32.0-36.0); NEUT# 16.48 thou/uL (1.82-7.42); RED BLOOD COUNT 4.14 mill/uL (4.70-6.10); RED CELL DISTRI WIDTH 15.4 % (11.5-15.5)
--- NOTE | 2020-09-07 14:30 | NUR ---
PT SITTING HIGH FOWLERS. AT BEDSIDE. REPORTS PAIN TO ABDOMEN. MD NOTIFIED.
[2020-09-07 14:52] LABS: CREATININE 2.1 mg/dL (0.7-1.3)
[2020-09-07 15:02] LABS: HEMATOCRIT 39.4 % (39.0-50.0); MEAN CELL VOLUME 95.2 fL CALC (80.0-100.0)
[2020-09-07 15:04] LABS: BILIRUBIN, TOTAL 0.8 mg/dL (0.0-1.4); TOTAL PROTEIN 4.9 g/dL (6.3-8.2)
[2020-09-07 15:05] LABS: ALBUMIN 2.1 g/dL (3.2-5.0); POTASSIUM 2.2 mmol/l (3.5-5.1)
--- NOTE | 2020-09-07 15:30 | NUR ---
MEDICATED WITH PAIN MEDS. IV FLUIDS AND MEDS INFUSING ORDERED. VITALS STABLE. BED IN LOW POSITION
--- NOTE | 2020-09-07 17:00 | NUR ---
REPORT CALLED TO ICU, HERMES MULLER.
--- NOTE | 2020-09-07 17:30 | NUR ---
PT TO ICU BED 4 VIA ER STRETCHER. PT MAX ASSIST TRANSFER TO BED. PT IS ALERT AND ORIENTED X3. PT WITH COMPLAINTS OF ABD PAIN AND BUTTOCKS PAIN. ADMISSION ASSESSMENT COMPLETED WITH PMH. IV PATENT X2. LAB AT BEDSIDE TO OBTAIN 1800 SEPCIMEN. PLAN OF CARE DISCUSSED. CALL LIGHT IN [facility]. WILL CONTINUE TO MONITOR.
[2020-09-07 17:45] VITALS: BP 144/65
[2020-09-07 18:00] VITALS: BP 135/62
--- NOTE | 2020-09-07 18:00 | NUR ---
MANAGER UTILIZATION SHOWS SECOND DEGREE AVB TYPE 2.
[2020-09-07 18:15] VITALS: BP 137/67
--- NOTE | 2020-09-07 18:25 | NUR ---
RT AT BEDSIDE FOR EKG
[2020-09-07 18:30] VITALS: BP 136/60
--- NOTE | 2020-09-07 18:30 | NUR ---
Chon SCOTT APRN CALLED WITH EKG CHANGES. NEW ORDERS RECEIVED
[2020-09-07 19:05] VITALS: BP 141/67
--- NOTE | 2020-09-07 19:05 | NUR ---
RESTING IN BED ON ROUNDS. ALERT AND WELL ORIENTED. RESP NON-LABORED AT REST. O2 ON AT 3 L NC O2 SAT 96% BREATH SOUNDS DIMINISHED THROUGHOUT. GENERALIZED EDEMA PRESENT. PEDAL PULSES WEAK. IV IN LAC WITH NS INFUSING AT 75 ML/HR AND K RIDER INFUSING. IV SITE IN LAC FREE OF REDNESS, TENDERNESS OR SWELLING. SYSTEM SUPPORT TECHNICIAN SHOWS AFIB WITH IVCD AND FREQ PVC'S. DISCUSSED PLAN OF CARE. QUESTIONS ANSWERED. DENIES NEEDS AT THIS TIME. CALL J[facility]ON IN [facility].
[2020-09-07 20:19] LABS: TSH, 3RD GENERATION 2.43 uIU/mL (0.47 - 4.68)
--- NOTE | 2020-09-07 20:45 | NUR ---
PATIENT REQUESTING SOMETHING FOR BACK PAIN. PATIENT STATES HE USES LORTAB FOR CHRONIC BACK PAIN. CALL TO Chon CSOTT/YANELY TO REPORT PATIENT RQUEST FOR PAIN MED.
--- NOTE | 2020-09-07 21:00 | NUR ---
UP TO [facility] HAD SMALL STOOL AND VOIDED.
[2020-09-07 22:00] VITALS: BP 151/80
--- NOTE | 2020-09-07 22:29 | NUR ---
MEDICATED WITH LORTAB 5/325, 1 TAB FOR C/O BACK PAIN.
[2020-09-07 22:31] LABS: CREATININE 1.6 mg/dL (0.7-1.3)
[2020-09-07 22:33] LABS: POTASSIUM 2.3 mmol/l (3.5-5.1)
--- NOTE | 2020-09-07 22:45 | NUR ---
2200 LAB RESULTS REPORTED TO Chon SCOTT/SUPERVISOR DIAGNOSTIC-POTASSIUM LEVEL 2.3 AND CALCIUM LEVEL 4.8. NEW ORDERS RECEIVED.
--- NOTE | 2020-09-07 23:38 | NUR ---
ASSISTED PATIENT WITH REPOSTIONING IN BED. MEDICATED WITH SONATA 5 MG PO FOR SLEEP.
[2020-09-08] VITALS (15 sets, daily range): BP systolic 103–149; BP diastolic 58–77
--- NOTE | 2020-09-08 00:05 | NUR ---
PATIENT ASLEEP. RESP NON-LABORED. VSS. AFIB WITH IVCD AND FREQ PVC'S ON MONITOR.
--- NOTE | 2020-09-08 02:00 | NUR ---
SLEEPING. VSS. RESP NON-LABORED. O2 SAT 98% AFIB VARIABLE HR, IVCD AND FREQ PVC'S ON MONITOR.
--- NOTE | 2020-09-08 05:00 | NUR ---
PATIENT UP TO [facility], HAD LARGE SOFT BROWN STOOL AND VOIDED. BACK TO BED WITH TWO MAX ASSISTS. PATIENT VERY STIFF THIS MORNNG AND NOT MOVING WELL AT ALL. PATIENT STATES THIS WEAKENSS HAS STARTED IN THE PAST FEW DAYS.
--- NOTE | 2020-09-08 05:52 | NUR ---
RESTING IN BED. C/O NAUSEA AND HAVING DRY HEAVES. MEDICATED WITH ZOFRAN FOR NAUSEA ORDERED. VSS. AFIB WITH IVCD AND OCC PVC'S ON MONITOR.
[2020-09-08 06:27] LABS: HEMATOCRIT 35.9 % (39.0-50.0); HEMOGLOBIN 11.7 g/dl (14.0-18.0); IMMATURE GRANULOCYTES 0.7 % (0.0-5.0); MEAN CELL VOLUME 98.1 fL CALC (80.0-100.0); MEAN CORPUSCULAR HGB CONC 32.6 g/dL CAL (32.0-36.0); NEUT# 11.41 thou/uL (1.82-7.42); RED BLOOD COUNT 3.66 mill/uL (4.70-6.10); RED CELL DISTRI WIDTH 15.6 % (11.5-15.5)
[2020-09-08 06:45] LABS: ALBUMIN 1.7 g/dL (3.2-5.0); BILIRUBIN, TOTAL 0.5 mg/dL (0.0-1.4); CREATININE 1.7 mg/dL (0.7-1.3); MAGNESIUM 1.4 mg/dL (1.6-2.3); TOTAL PROTEIN 4.2 g/dL (6.3-8.2)
--- NOTE | 2020-09-08 06:45 | NUR ---
REPORT RECEIVED FROM LI MIRZA AT THIS TIME. CARE ASSUMED.
[2020-09-08 06:49] LABS: CHOLESTEROL HDL RATIO 4.2 (<4.4 (CALC))
--- NOTE | 2020-09-08 06:50 | NUR ---
LAB PHONED [facility] CRITICAL CALCIUM LEVEL. WILL NOTIFY
--- NOTE | 2020-09-08 07:05 | NUR ---
PHONED DR JARAMILLO REFERENCE CRITICAL CALCIUM LEVEL. UPDATED ON ALL LABS. NEW ORDERS RECEIVED.
--- NOTE | 2020-09-08 07:35 | NUR ---
PT RESTING IN BED WITH EYES CLOSED. AROUSES TO VERBAL STIMULI. PT IS ALERT AND ORIENTED X3. SHIFT ASSESSMENT COMPLETED AT THIS TIME. IV PATENT X2. SOLIS PLACED USING STERILE TECHNIQUE. SOLIS PLACED WITH SOME DIFFICULTY DUE TO ANATOMY. PT TOLERATED WELL. CALL LIGHT IN REACH. WILL CONTINUE TO MONITOR.
--- NOTE | 2020-09-08 08:22 | NUR ---
DR JARAMILLO AT BEDSIDE AT THIS TIME TO DISCUSS PLAN OF CARE
--- NOTE | 2020-09-08 09:08 | NUR ---
CALLED [employer] AT SPOKE TO PHOEBE ABOUT AIR MATTRESS FOR THIS PT. WAS GIVEN CONFIRMATION NUMBER [id number].
--- NOTE | 2020-09-08 09:15 | NUR ---
INTO ROOM TO MEDICATE PATIENT. EXPLAINED POTASSIUM POWDER. PT STATES IT "[place]TER[place] MY MOUTH" I DONT WANT IT. MADE MULTIPLE ATTEMPTS TO WATER POTASSIUM DOWN. PT THEN DRY HEAVED ON MEDICINE. PHONED PHARMACY TO DISUCUSS OTHER OPTIONS. MED CHANGED TO ENTERIC COATED POTASSIUM.
--- NOTE | 2020-09-08 09:53 | NUR ---
PT BEING ASSISTED UP TO BSC BY CLINICAL RESEARCH DIRECTOR.
--- NOTE | 2020-09-08 11:53 | NUR ---
PT SEATED UP IN BED WATCHING TV. VSS ON MONITOR. RESP ARE EVEN AND UNLABROED. SET UP FOR NOON MEAL AT THIS TIME. CALLLIGHT IN REACH. [facility] ONTINUE TO MONITOR.
--- NOTE | 2020-09-08 12:16 | NUR ---
[employer] PLM CONSULTANT AT BEDSIDE AT THIS TIME
--- NOTE | 2020-09-08 14:10 | NUR ---
PT RESTING IN BED AWAKE. RESP ARE EVEN AND UNLABORED. NO DISTRESS NOTED. CALL LIGHT IN REACH. WILL CONTINUE TO MONITOR
--- NOTE | 2020-09-08 15:29 | NUR ---
WOUND CARE AT BEDSIDE AT THIS TIME
--- NOTE | 2020-09-08 15:58 | NUR ---
PT RESTING IN HIGH FOWLERS POSITION AT THIS TIME ON AIR MATTRESS. RESP ARE EVEN AND UNLABORED. NO DISTRESS NOTED. CALL LIGHT IN REACH. WILL CONTINUE TOO MONITOR
[2020-09-08 16:43] LABS: URINE BILIRUBIN - DIPSTICK NEGATIVE (NEGATIVE); URINE BLOOD DIPSTICK SMALL (NEGATIVE); URINE GLUCOSE - DIPSTICK NEGATIVE (NEGATIVE); URINE KETONE TRACE mg/dL (NEGATIVE); URINE PH 7.5 (4.5-8.0); URINE PROTEIN - DIPSTICK 30 mg/dL (NEG-TRACE); URINE SPECIFIC GRAVITY 1.015; URINE UROBILINOGEN - DIPSTICK 0.2 E.U./dL (0.2)
[2020-09-08 16:45] LABS: URINE COLOR DK. YELLOW; URINE LEUK ESTERASE MODERATE (NEGATIVE); URINE NITRITE - DIPSTICK POSITIVE (Negative)
[2020-09-08 16:46] LABS: URINE BACTERIA MANY hpf; URINE EPITHELIAL CELLS MODERATE EPI/hpf (0-FEW)
--- NOTE | 2020-09-08 17:30 | NUR ---
REPORT FROM YOHANA MIRZA. ASSUME PT CARE.
--- NOTE | 2020-09-08 18:31 | NUR ---
PT SITTING UP EATING MEAL. 25% CONSUMED. PT C/O MOUTH BEING SORE AND THROBBLE SWALLOWING FOOD. ENSURE PROVIDED AND DINNER TRAY REMOVED UPON REQUEST. NO OTHER CURRENT WANTS OR NEEDS. NO APPARENT DISTRESS NOTED. CALL LIGHT WITHIN REACH. WILL CONTINUE TO MONITOR.
--- NOTE | 2020-09-08 19:20 | NUR ---
PATIENT RESTING IN BED IN HIGH FOWLERS POSITON. ON AIR MATTRESS. ALERT AND ORIENTED. PALE IN COLOR, SKIN WARM AND DRY TO TOUCH. RESP NON-LABORED AT REST. O2 ON AT 3 L NC. VSS. BREATH SOUNDS DIMINISHED THROUGHOUT LUNG WINTERS. POOR SKIN INTEGRITY WITH SEVERAL OPEN AREAS NOTED. DUODERM IN PLACE ON COCCYX AND DSG TO SKIN TEAR ON LFA. IV IN LFA, SITE BENIGN, NS INFUSING AT 20 ML/HR. SALINE LOCK INTACT TO RAC. BOTH SITES BENIGN. SOLIS DRAINS SLIGHTLY CLOUDY DANILO URINE. SUPERVISOR GRAIN AND YEAST PLANTS SHOWS AFIB WITH IVCD. LINENS STRAIGHTENED AND REPOSITIONED PATIENT IN BED. REQUESTING PAIN MED ADVISED NOT DUE FOR 1 HOUR. PATIENT VERBALIZES UNDERSTANDING. PATIENT DEMANDING-"PUT MY HEAD UP", "PUT MY HEAD DOWN", "FIX MY PILLOW", "STRAIGHTEN MY LEGS IN THE BED". PATIENT SHOWN HOW TO WORK BED CONTROLS AND REFUSES TO DO SO ON HIS OWN. DISCUSSED PLAN OF CARE. DENIES NEEDS AT THIS TIME. CALL JOHNSON IN REACH.
--- NOTE | 2020-09-08 20:30 | NUR ---
PATIENT C/O BACK PAIN RATES 8/10. WHILE THIS NURSE SCANNING MED AND ASKING ABOUT LEVEL OF PAIN PATIENT STATES "IF YOU DON'T HURRY UP IT'S GOING TO BE A 10." ADVISED PATIENT OF PROCESS FOR ADMINISTERING MEDICATIONS.
--- NOTE | 2020-09-08 21:00 | NUR ---
UP TO BSC WITH ONE ASSIST, HAD LARGE LOOSE STOOL.
--- NOTE | 2020-09-08 21:15 | NUR ---
SONATA 5 MG GIVEN FOR SLEEP PER PATIENT REQUEST.
--- NOTE | 2020-09-08 21:50 | NUR ---
REPORTED POSITIVE CDIFF RESULTS TO DR BOYKIN. NEW ORDERS RECEIVED. PATIENT RESITNG WITH EYES CLOSED.
[2020-09-09] VITALS (11 sets, daily range): BP systolic 99–140; BP diastolic 56–73
--- NOTE | 2020-09-09 00:30 | NUR ---
PATIENT AWAKE. C/O BACK PAIN, MEDICATED FOR PAIN ORDERED. PATIENT SPILLED SODA IN BED, PARTIAL LINEN CHANGE DONE.
--- NOTE | 2020-09-09 02:10 | NUR ---
ASLEEP. RESP NON-LABORED. VSS.
--- NOTE | 2020-09-09 04:20 | NUR ---
MEDICATED FOR C/O PAIN. ARMS WEEPING BILATERALLY-GOWN AND TOP SHEET CHANGED. DISPOSABLE CHUX PLACED AROUND EACH ARM AND ELEVATED ON PILLOWS. SALINE LOCK IN RAC LEAKING, DC'D WITH CATHETER INTACT.
--- NOTE | 2020-09-09 06:00 | NUR ---
PATIENT STATES FEELS A LITTLE BETTER THIS MORNING. VSS. AFIB WITH IVCD ON MONITOR.
[2020-09-09 06:43] LABS: HEMATOCRIT 40.3 % (39.0-50.0); HEMOGLOBIN 13.2 g/dl (14.0-18.0); IMMATURE GRANULOCYTES 0.6 % (0.0-5.0); MEAN CELL VOLUME 98.1 fL CALC (80.0-100.0); MEAN CORPUSCULAR HGB 32.1 pG CALC (26.0-32.0); MEAN CORPUSCULAR HGB CONC 32.8 g/dL CAL (32.0-36.0); NEUT# 16.5 thou/uL (1.82-7.42); RED BLOOD COUNT 4.11 mill/uL (4.70-6.10); RED CELL DISTRI WIDTH 16.1 % (11.5-15.5)
--- NOTE | 2020-09-09 06:45 | NUR ---
RECIEVED REPORT FROM HERMES AHN. ASSUMED PT CARE.
[2020-09-09 06:58] LABS: C-REACTIVE PROTEIN 3.5 mg/dL (0-0.9); POTASSIUM 3.6 mmol/l (3.5-5.1)
--- NOTE | 2020-09-09 08:30 | NUR ---
DR. STEEN AT BEDSIDE FOR ASSESSMENT AND TO DISCUSS PLAN OF CARE, NEW ORDERS RECIEVED. CALL LIGHT IN REACH. WILL MONITOR.
--- NOTE | 2020-09-09 10:00 | NUR ---
PT ASSISTED TO BSC, SCANT BM, LIQUID, BROWN. GOOD PERICARE PROVIDED, DUODERM CDI. BACK TO BED. CALL LIGHT IN REACH. WILL MONITOR.
--- NOTE | 2020-09-09 11:20 | NUR ---
PT WILBUR JOHNSON CALLED, PERMISSION RECIEVED FROM PT. CODE GIVEN AND UPDATE.
--- NOTE | 2020-09-09 12:00 | NUR ---
PT GIVEN CBB, FULL LINEN CHANGE, GOWN. PADS SATURATED FROM WEEPING BUE. PT TOLERATED WELL . REMAINS ON AIR MATTRESS. CALL LIGHT IN REACH. WILL MONITOR.
--- NOTE | 2020-09-09 14:00 | NUR ---
PT ASSISTED WITH BEDPAN, MODERATE LOOSE BROWN BM, GOOD PERICARE GIVEN. DUODERM CDI. PT REPOSITIONED FOR COMFORT. CALL LIGHT IN REACH. WILL MONITOR.
--- NOTE | 2020-09-09 16:00 | NUR ---
PT RESTING IN BED, REPORTING PAIN 6/10 REQUESTING MEDICATION. PT REPOSITIONED. WILL MEDICATE ORDERED. CALL LIGHT IN REACH. WILL MONITOR.
--- NOTE | 2020-09-09 18:55 | NUR ---
PATIENT SITS UP IN HIGH DUNNE'S, WAS SENIOR SYSTEMS ANALYST LIGHT TO REQUEST WARM BLANKET, PROVIDED. HE REPORTS HE HAS A BTTER APPETITE. NURSE ASSESSMENT PERFORMED. LFA IV INTACT, NS AT 20 ML/HR. BILATERAL ARMS NOT WEEPING AT THIS TIME, DRY WEEPING DRAINAGE NOTED TO GOWN. IS ON 3 L/MIN NC, O2 SAT 100%. SOLIS INTACT. AFIB ON TELEMEYRY, HR 80'S. BP WNL. 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 AIR MATRESS INTACT. CALL LIGHT WITHIN REACH.
--- NOTE | 2020-09-09 21:13 | NUR ---
PATIENT ABLE TO TOLERTE HIS BEDTIME MEDICATION. PAIN MEDICATION GIVEN PER PT REQUEST. PATIENT'S GOWN WAS CHANGED, ARMS REPOSITIONED. PT WAS PULLED UP WITH MAX ASSIST X2. SAT IN HIGH DUNNE'S PERREQUEST. CALL LIGHT WITHIN REACH.
[2020-09-10] VITALS (8 sets, daily range): BP systolic 98–134; BP diastolic 54–85
--- NOTE | 2020-09-10 00:14 | NUR ---
PT ABLE TO SWALLOW PO MEDICATION. REQUESTS A BREATHING TREATMENT FOR SOB. RT CALLED. O2 SAT IS 100%.
--- NOTE | 2020-09-10 01:09 | NUR ---
PAIN MEDICATION GIVEN PER PT REQUEST. SACCRAL WOUND WAS ALSO CLEANED, NEW DUODERM APPLIED, PT REFUSES TO LAY ON HIS SIDE. WAS PULLED UP AND NOW IN HIGH DUNNE'S PER PT REQUEST. AIR MATRESS ON AND INTACT.
--- NOTE | 2020-09-10 02:10 | NUR ---
PATIENT ACTIVITY AIDE LIGHT, REQUESTS FOR HIS FEET TO BE COVERED BACK UP SINCE HE HAD UNCOVERED THEM.
--- NOTE | 2020-09-10 04:51 | NUR ---
PATIENT TEXTILE SLITTING MACHINE OPERATOR LIGHT, REQUESTS FOR TEMPERATURE IN ROOM TO BE TURNED UP SINCE HE IS COLD, PAIN MEDICATION POVIDED WELL. WARM BLANKET PROVIDED.
[2020-09-10 06:30] LABS: CREATININE 1.8 mg/dL (0.7-1.3)
[2020-09-10 06:31] LABS: POTASSIUM 4.5 mmol/l (3.5-5.1)
--- NOTE | 2020-09-10 06:45 | NUR ---
RECIEVED REPORT FROM HERMES BLANC. ASSUMED PT CARE.
--- NOTE | 2020-09-10 08:00 | NUR ---
PT RESTING IN BED, REMAINS AFIB ON TELEMETRY, HR 90. RESPIRATIONS EVEN/UNLABORED, SA02@99@ O23LPM/NC. LS CLEAR THROUGHOUT, WILL PATENT, DRAINING TO BSD VIA GRAVITY, REMAINS ON AIR MATTRESS. CALL LIGHT IN REACH. WILL MONITOR.
--- NOTE | 2020-09-10 09:15 | NUR ---
DR. STEEN AT BEDSIDE FOR ASSESSMENT AND TO DISCUSS PLAN OF CARE. [facility] REC[facility]EVED.
--- NOTE | 2020-09-10 10:30 | NUR ---
PT ASSISTED WITH BEDPAN, NO BM, PT PASSING GAS. PT REPOSITIONED. CALL LIGHT IN REACH.
--- NOTE | 2020-09-10 12:00 | NUR ---
PT ATE LUNCH, REQUESTED PAIN MEDICATION. WILL MEDICATED ORDERED. CALL LIGHT IN REACH. WILL MONITOR.
--- NOTE | 2020-09-10 14:00 | NUR ---
PT ASSISTED WITH BEDPAN, NO BM. PT CONTINUES TO PASS GAS.
--- NOTE | 2020-09-10 16:00 | NUR ---
PT ATTEMPTING TO GET OUT OF BED, STATED " I'M FEELING SO MUCH STRONGER, I'M GOING HOME TOMORROW'. SAFETY EDUCATION AND REPOSITIONING DONE. WILL MONITOR.
--- NOTE | 2020-09-10 18:00 | NUR ---
PT SITTING UP IN BED, EATING DINNER, NO DISTRESS NOTED AT THIS TIME.
--- NOTE | 2020-09-10 19:11 | NUR ---
PATIENT LAYS IN HIGH DUNNE'S POSITION. NO ACUTE DISTRESS SHOWN. CALL LIGHT WITHIN REACH.
--- NOTE | 2020-09-10 19:35 | NUR ---
PATIENT WAS ON BED MARVIN, NO BM JUST GAS. LINENS WERE CHANGED, GOWN CHANGED, PT WAS PULLED UP. ARMS ELEVATED WITH PILLOWS AND DISPOSABLE PAD FOR WEEPING ON BILATERAL ARMS. AIR MATRESS INTACT. BUTTCOKS WOUND WAS CLEANSED AND NEW DUODERM APPLIED. NURSE ASSESSMENT PERFORMED. O2 WEANED TO 2 L/MIN NC, O2 SAT 100%, NO SOB NOTED. LFA IV INTACT, NS AT 20 ML/HR. SOLIS INTACT, URINE YELLOW/CLEAR. POC DISCUSSED, CUP OF ICED WATER PROVIDED, ALSO DISCUSSED OF WATER INTAKE. CALL LIGHT WITHIN REACH.
--- NOTE | 2020-09-10 21:35 | NUR ---
PATIENT ABLE TO SWALLOW ALL OF HIS BEDTIME MEDICATIONS, PAIN MEDICATION AND SLEEP MEDICATION GIVEN PER REQUEST. PATIENT RATES PAIN OF 8 FOR BACK PAIN. NEW BLOOD PRESSURE CUFF PLACED ON MAGI DUE TO ARMS CONTINUE WEEPING. NO OTHER NEEDS OR COMPLAINTS AT THIS TIME. CALL LIGHT WITHIN RECH.
[2020-09-11] VITALS (9 sets, daily range): BP systolic 105–164; BP diastolic 58–85
--- NOTE | 2020-09-11 00:22 | NUR ---
PO ANTIBIOTIC PROVIDED. PATIENT RESTS WITH EYES CLOSED, AWAKENS EASILY WHEN SPOKEN TO. NO ACUTE DISTRESS SHOWN. CALL LIGHT WITHIN REACH.
--- NOTE | 2020-09-11 03:46 | NUR ---
PAIN MEDICATION GIVEN PER REQUEST. PATIENT NASAL CANNULA IS OFF OF HIS NOSE. HIS 02 SAT IS 98%. WILL CONTINUE TO MONITOR.
--- NOTE | 2020-09-11 05:13 | NUR ---
PATIENT WAS PLACED ON THE BEDPAN, NO BM PRESENT, JUST GAS. DRESSING ON BUTTOCKS CDI. APPLIED A DRESSING TO LFA SKIN TEAR, WAS CLEANSED WITH IODINE. PT SITS IN FOWLR'S POSITION. NO NEEDS AT THIS TIME.
--- NOTE | 2020-09-11 05:53 | NUR ---
PATIENT WAS GIVEN HIS AM MEDICATIONS, HE TOLERATED WELL. NO ACUTE DISTRESS SHOWN. NO NEEDS OR COMPLAINTS AT THIS TIME.
--- NOTE | 2020-09-11 07:32 | NUR ---
DR BOYKIN AT BEDSIDE
--- NOTE | 2020-09-11 07:40 | NUR ---
PT SITTING IN BED. A&O X3. NO DISTRESS NOTED. O2 VIA NC @2L IN PLACE. PT DENIES ANY PAIN AT THIS TIME. OXYGEN % SUSTAINING AT 92-94%. NO OTHER NEEDS AT THIS TIME. ASSESSMENT COMPLETED. DISCUSSED POC. CALL LIGHT IN REACH. CONTINUE TO MONITOR.
[2020-09-11 07:50] LABS: HEMATOCRIT 38.7 % (39.0-50.0); HEMOGLOBIN 12.5 g/dl (14.0-18.0); MEAN CELL VOLUME 99.2 fL CALC (80.0-100.0); MEAN CORPUSCULAR HGB 32.1 pG CALC (26.0-32.0); MEAN CORPUSCULAR HGB CONC 32.3 g/dL CAL (32.0-36.0); RED BLOOD COUNT 3.9 mill/uL (4.70-6.10)
[2020-09-11 08:35] LABS: ALBUMIN 1.9 g/dL (3.2-5.0); BILIRUBIN, TOTAL 0.5 mg/dL (0.0-1.4); CREATININE 1.4 mg/dL (0.7-1.3); TOTAL PROTEIN 4.3 g/dL (6.3-8.2)
--- NOTE | 2020-09-11 10:10 | NUR ---
PT ASSITED TO BSC WITH THE ASSISTANCE OF EDGAR MIRZA. PT HAD MODERATE SIZED BM, LOOSE IN CONSISTANCY. BED LINEN CHANGED, PT ASSISTED BACK TO BED. CALL LIGHT WITHIN REACH. CONTINUE TO MONITOR.
--- NOTE | 2020-09-11 12:15 | NUR ---
PT SITTING IN BED EATING LUNCH. NO DISTRESS NOTED. CALL LIGHT IN REACH. CONTINUE TO MONITOR.
--- NOTE | 2020-09-11 12:49 | NUR ---
ASSISTED PT TO BSC WITH THE ASSISTANCE OF THIS NURSE AND Kian BERMUDEZ RN. MODERATE LOOSE BM. SOLIS CARE PROVIDED, NEW GOWN GIVEN. PT ASSISTED BACK INTO BED. BILATERAL ARMS ELEVATED ON PILLOWS. CALL LIGHT IN REACH. CONTINUE TO MONITOR.
--- NOTE | 2020-09-11 12:54 | NUR ---
PT ASSISTED TO BSC WITH THE ASSISTANCE OF CLAUDETTE MIRZA
--- NOTE | 2020-09-11 15:10 | NUR ---
PT SLEEPING IN BED. NO DISTRES NOTED. CONTINUE TO MONITOR.
--- NOTE | 2020-09-11 18:40 | NUR ---
DRESSING COMPLETED OR WOUND CARE ORDERS ALONG WITH WOUND CARE. PT TOLERATED WELL.
--- NOTE | 2020-09-11 19:25 | NUR ---
ASSESSMENT COMPLETED. NO DISTRESS NOTED. IV SITE PATENT AND ORDERED IVF INFUSING @KVO. MULTIPLE WOUNDS TO BLE AND DRESSING TO COCCYX IN PLACE. DRESSING IN PLACE TO LFA; CDI. ATTEMPTED TO ASSIST PT. OOB AND PT. TO WEAK TO GET OOB AND ASSISTED ONTO BEDPAN. ASSSITED TO REPOSITION IN BED. O2 INFUSING PER NC @2LITERS/MIN. ENCOURAGED TO ASSIST WITH CARE. CALL LIGHT IS IN REACH. WILL CONTINUE TO MONITOR.
--- NOTE | 2020-09-11 21:00 | NUR ---
CBB AND LINENS CHANGED ALSO ASSISTED TO REPOSITION IN BED. NEW FOAM APPLIED TO COCCYX AND NEW KERLEX WRAP TO LFA. SNACK PROVIDED. C/O BACK AND HIP PAIN AND BEING UNABLE TO SLEEP; MEDICATED WITH ORDERED PRN SONATA AND LORTAB; WILL REASSESS.
--- NOTE | 2020-09-12 01:47 | NUR ---
PT. C/O PAIN TO BACK/HIPS; MEDICATED WITH ORDERED PRN LORTAB; WILL REASSESS; DENIES FURTHER NEEDS. CALL LIGHT IS IN REACH.
[2020-09-12 02:00] VITALS: BP 138/86
[2020-09-12 04:00] VITALS: BP 131/75
--- NOTE | 2020-09-12 05:55 | NUR ---
PT. C/O BACK AND HIP PAIN AND MEDICATED WITH ORDERED PRN LORTAB; WILL REASSESS. CHECKED FOR INCONTINENCE OF BM; NONE NOTED; DRESSING REMAINS IN PLACE TO COCCYX. BUE ELEVATED. CALL LIGHT IS IN REACH.
--- NOTE | 2020-09-12 07:20 | NUR ---
REPORT RECEIVED FROM HERMES MIN. PT RESTING IN BED SEMI FOWLERS; ALERT AND ORIENTED. SLID DOWN IN BED AND PT USED CALL LIGHT TO REQUEST TO BE PULLED UP IN BED POSITION WAS CAUSING HIS HIPS DISCOMFORT. PT ABLE TO PULL HIMSELF UP IN BED WITH ONE PERSON ASSIST. DENIES PAIN AFTER REPOSITIONING. RESPIRATIONS EVEN AND UNLABORED ON OXYGEN 2L VIA NC. ACCU CHECK 86. TELE ON; AFIB. IV FLUIDS INFUSING AT 50ML/HR; IV SITE APPEARS HEALTHY. ASSESSMENT COMPLETED AT THIS TIME; LUNGS ARE CLEAR; HR IRREGULAR; GENERALIZED EDEMA. PT RESTING ON AIRMATRESS. 16F SOLIS DRAINING DARK YELLOW URINE IN ADEQUATE AMOUNTS. POC REVIEWED. PT ENCOURAGED TO VERBALIZE CONCERNS. STATES UNDERSTANDING. SAFETY MEASURES IN PLACE. CALL LIGHT WITHIN REACH.
[2020-09-12 07:45] VITALS: BP 139/69
[2020-09-12 09:45] VITALS: BP 139/69
--- NOTE | 2020-09-12 09:45 | NUR ---
ASSISTED ONTO BEDPAN FOR LARGE LOOSE BOWEL MOVEMENT; REMAINS ON CONTACT PLUS PRECAUTIONS FOR CIDFF. HYGIENE PROVIDED. DRESSING TO COCCYX CHANGED; OPEN CIRCULAR AREA MEASURES 1.1 X 0.9 X 0.1; XEROFORM AND AQUACEL DRESSING APPLIED AND PHOTO OBTAINED. PHOTOS ALSO TAKEN OF LEFT TOES AND ANKLES THEN BETADINE APPLIED PER ORDERS.
--- NOTE | 2020-09-12 10:25 | NUR ---
PHYSICAL THERPAY AT BEDSIDE; PT TRANSFERED TO BEDSIDE CHAIR WITH MAX ASSIST; PT UNSTEADY.
--- NOTE | 2020-09-12 11:40 | NUR ---
TRANSFERRED FROM CHAIR TO BSC FOR ANOTHER LOOSE BOWEL MOVEMENT X 2 PERSON ASSIST. 3 PERSON ASSIST TO MOVE BACK INTO CHAIR. SET UP FOR LUNCH. PT PLEASANT AND COOPERATIVE. 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
[2020-09-12 11:45] VITALS: BP 137/59
--- NOTE | 2020-09-12 12:30 | NUR ---
LORTAB GIVEN FOR 8/10 LOWER BACK AND BILATERAL HIP PAIN. VANCO IV AND PO GIVEN. NO OTHER REQUESTS OR CONCERNS AT THIS TIME. CALL LIGHT WITHIN REACH.
[2020-09-12] MEDS ORDERED: DOXYCYCL HYC100 MG PO (12:43)
[2020-09-12] MEDS ORDERED: VANCOMYCIN HCL125 M1 PO (12:43)
[2020-09-12] MEDS ORDERED: KLOR-CON M2020 MEQ PO (12:43)
[2020-09-12] MEDS ORDERED: LORTAB 7.57.5 MG PO (12:43)
[2020-09-12] MEDS ORDERED: LASIX 40 MG TAB40 MG PO (12:43)
[2020-09-12 14:00] VITALS: BP 102/50
--- NOTE | 2020-09-12 14:45 | NUR ---
PT TALKING WITH SON ON CELLPHONE; UPDATED ON DISCHARGE PLANS TO GO TO [facility] TODAY ROOM 105.
--- NOTE | 2020-09-12 15:00 | NUR ---
IV site discontinued, cath intact. No edema , no redness, voices no discomfort. SOLIS CATHETER REMOVED; 450 ML EMPTIED PRIOR TO DC; PT TOLERATED WELL. PT DRESSED IN CLOTHES.
--- NOTE | 2020-09-12 15:15 | NUR ---
DRESSING TO LFA CHANGED AND PHOTO PLACED IN CHART.
--- NOTE | 2020-09-12 19:04 | NUR ---
Discharge instructions given. Patient verbalizes understanding of same. Discharged in stable condition via [facility] with [facility]. All belongings sent with pt.
--- NOTE | 2020-09-12 19:10 | NUR ---
REPORT CALLED TO PHILL AT [facility].
== END 2020-09-12 19:03 | DRG 291 ==
LOC: ED 13:04 → ED-I 15:10 → ED 15:47 → ICU 15:48
PROVIDERS: Family Medicine; Internal Medicine; Nurse Practitioner; Nurse Practitioner Family; ADMIT Internal Medicine; ATTEND Internal Medicine
DX: I11.0 Hypertensive heart disease with heart failure (principal); J96.20 Acute and chronic respiratory failure, unspecified whether with hypoxia or hypercapnia; J18.9 Pneumonia, unspecified organism; A04.72 Enterocolitis due to Clostridium difficile, not specified as recurrent; J44.0 Chronic obstructive pulmonary disease with (acute) lower respiratory infection; E87.2 Acidosis; J44.1 Chronic obstructive pulmonary disease with (acute) exacerbation; N17.9 Acute kidney failure, unspecified; I50.9 Heart failure, unspecified; E11.22 Type 2 diabetes mellitus with diabetic chronic kidney disease; N18.30 Chronic kidney disease, stage 3 unspecified; E11.51 Type 2 diabetes mellitus with diabetic peripheral angiopathy without gangrene; E87.6 Hypokalemia; E88.09 Other disorders of plasma-protein metabolism, not elsewhere classified; I45.10 Unspecified right bundle-branch block; I49.3 Ventricular premature depolarization; S81.802A Unspecified open wound, left lower leg, initial encounter; S81.801A Unspecified open wound, right lower leg, initial encounter; S31.000A Unspecified open wound of lower back and pelvis without penetration into retroperitoneum, initial encounter; L98.499 Non-pressure chronic ulcer of skin of other sites with unspecified severity; T81.89XA Other complications of procedures, not elsewhere classified, initial encounter; N40.0 Benign prostatic hyperplasia without lower urinary tract symptoms; Y83.8 Other surgical procedures as the cause of abnormal reaction of the patient, or of later complication, without mention of misadventure at the time of the procedure; Z99.81 Dependence on supplemental oxygen; Z79.84 Long term (current) use of oral hypoglycemic drugs; Z85.828 Personal history of other malignant neoplasm of skin; Z20.828 Contact with and (suspected) exposure to other viral communicable diseases
CPT/HCPCS: J3475